=== PATIENT | male | born 1955 | race Caucasian/White ===

== ENCOUNTER 2019-10-26 20:45 | Emergency (ER) | payer MEDICAID ==
[~2019-10-26] VITALS: Ht 170.2 cm; Wt 71.0 kg
[2019-10-26] MEDS ORDERED: MAGNESIUM/ALUMINUM HYDROXIDE/SIMETHICONE 30ML UDC PO STA (22:39)
[2019-10-26] MEDS ORDERED: VISCOUS LIDOCAINE 2% 15 ML UDC PO STA (22:39)
[2019-10-26 22:56] LABS: HEMATOCRIT 42.6 % (42.0-52.0); HEMOGLOBIN 14.1 g/dL (14.0-18.0); MEAN CORPUSCULAR HEMOGLOBIN 30.2 pg (28.0-32.0); PLATELET 166 x1000/uL (130-400); RED BLOOD CELL COUNT 4.68 mill/uL (4.7-6.1); RED CELL DISTRIBUTION WIDTH 12.6 % (11.6-14.6)
[2019-10-26 23:03] LABS: CHLORIDE 109 mEq/L (98-107)
[2019-10-27 00:44] VITALS: BP 146/85
== END 2019-10-27 00:45 | disposition home or self-care (01) ==
LOC: ER 20:45
DX: K29.01 Acute gastritis with bleeding (principal); Z90.49 Acquired absence of other specified parts of digestive tract; Z98.890 Other specified postprocedural states; Z88.6 Allergy status to analgesic agent; Z88.5 Allergy status to narcotic agent; Z88.0 Allergy status to penicillin; Z88.2 Allergy status to sulfonamides
CPT/HCPCS: 36415; 80053; 85027; 93005; 99284

== ENCOUNTER 2020-06-07 22:41 | Emergency (ER) | payer MEDICAID ==
[~2020-06-07] VITALS: Ht 170.2 cm; Wt 71.7 kg
[2020-06-08] MEDS ORDERED: KETOROLAC 30MG/ML VIAL IM ONE (00:30)
[2020-06-08] MEDS ORDERED: METHOCARBAMOL 500MG TABLET PO ONE (01:00)
[2020-06-08] MEDS ORDERED: IBUP-2029 MT (01:01)
[2020-06-08] MEDS ORDERED: METH-653 MT (01:01)
[2020-06-08 01:37] VITALS: BP 140/74
== END 2020-06-08 02:17 | disposition home or self-care (01) ==
LOC: ER 22:41
DX: R51.9 Headache, unspecified (principal); S16.1XXA Strain of muscle, fascia and tendon at neck level, initial encounter; X50.0XXA Overexertion from strenuous movement or load, initial encounter; Y93.89 Activity, other specified; Y92.89 Other specified places as the place of occurrence of the external cause; Y99.8 Other external cause status; Z90.49 Acquired absence of other specified parts of digestive tract; Z88.0 Allergy status to penicillin; Z88.2 Allergy status to sulfonamides; Z88.5 Allergy status to narcotic agent
CPT/HCPCS: 70450; 93005; 96372; 99284; J1885

== ENCOUNTER 2020-10-09 08:16 | Emergency (ER) | payer MEDICAID ==
[~2020-10-09] VITALS: Ht 167.6 cm; Wt 66.0 kg
[~2020-10-09 08:16] MED LIST: IBUP-2029 MT; METH-653 MT
[2020-10-09 08:22] VITALS: BP 155/90
[2020-10-09 09:28] LABS: CLARITY URINE CLEAR (CLEAR); COLOR URINE YELLOW (YELLOW); KETONES URINE NEGATIVE (NEGATIVE); LEUKOCYTE ESTERASE URINE NEGATIVE (NEGATIVE); NITRITE URINE NEGATIVE (NEGATIVE); OCCULT BLOOD URINE NEGATIVE (NEGATIVE); PH URINE 6.5 (4.5-8.0); PROTEIN URINE NEGATIVE (NEGATIVE); SPECIFIC GRAVITY URINE 1.006 (1.005-1.030); UROBILINOGEN URINE 0.2 E.U./dL (0.2-1.0)
[2020-10-09] MEDS ORDERED: CEPH500T MT (10:18)
[2020-10-09] MEDS ORDERED: AZITHROMYCIN 500 MG TABLET PO NR (10:30)
[2020-10-09] MEDS ORDERED: CEFTRIAXONE SODIUM 500 MG/VIAL IM NR (10:30)
[2020-10-11 04:12] LABS: NEISSERIA GONORRHOEAE NAA Negative (Negative)
== END 2020-10-09 10:44 | disposition home or self-care (01) ==
LOC: ER 08:16
DX: R30.0 Dysuria (principal); M19.90 Unspecified osteoarthritis, unspecified site; Z90.49 Acquired absence of other specified parts of digestive tract; Z88.6 Allergy status to analgesic agent; Z88.5 Allergy status to narcotic agent; Z88.0 Allergy status to penicillin; Z88.2 Allergy status to sulfonamides
CPT/HCPCS: 81003; 87086; 87491; 87591; 96372; 99283; J0696

== ENCOUNTER 2022-11-24 12:22 | Emergency (ER) | payer OTHER ==
[~2022-11-24] VITALS: Ht 170.2 cm; Wt 72.6 kg
[~2022-11-24 12:22] MED LIST changes: +CEPH500T MT
[2022-11-24 12:29] VITALS: O2SAT 97
[2022-11-24 12:49] LABS: BASOPHILS % 0.3 % (0.0-2.0); EOSINOPHILS % 1.1 % (0.0-5.0); HEMATOCRIT. 41.1 % (42.0-52.0); MEAN PLATELET VOLUME 9.8 fl (7.4-10.4); NEUTROPHILS % 44.6 % (40.0-76.0); PLATELET 190 x1000/uL (130-400); RED BLOOD CELL COUNT 4.37 mill/uL (4.7-6.1); WHITE BLOOD COUNT 4.9 x1000/uL (4.5-11.0)
[2022-11-24 13:05] LABS: CHLORIDE 108 mEq/L (98-107); INDEX HEMOLYSI 1 (1-3); INDEX ICTERIC 2 (1-4); INDEX LIPEMIC 1 (1-3); POTASSIUM 4.5 mEq/L (3.5-5.1); SODIUM 140 mEq/L (136-145)
[2022-11-24 13:17] LABS: ALANINE AMINOTRANSFERASE 48 IU/L (13-61); ALBUMIN 3.8 g/dL (3.4-5.0); ASPARTATE AMINOTRANSFERASE 29 IU/L (15-37); CALCIUM 9.2 mg/dL (8.5-10.1); CARBON DIOXIDE 27 mEq/L (21-32); GLUCOSE 108 mg/dL (70-105); PROTEIN TOTAL 7.2 g/dL (6.0-8.3); TROPONIN I HIGH SENSITIVITY 4 ng/L (<78); UREA NITROGEN BLOOD 13 mg/dL (7-21)
[2022-11-24] MEDS ORDERED: MAGNESIUM/ALUMINUM HYDROXIDE/SIMETHICONE 30ML UDC PO STA (14:40)
[2022-11-24] MEDS ORDERED: ACETAMINOPHEN 325MG TABLET PO STA (14:40)
[2022-11-24] MEDS ORDERED: FAMOTIDINE 20MG TABLET PO ONE (14:45)
[2022-11-24 14:59] LABS: CLARITY URINE CLEAR (CLEAR); COLOR URINE YELLOW (YELLOW); GLUCOSE URINE NEGATIVE (NEGATIVE); KETONES URINE NEGATIVE (NEGATIVE); LEUKOCYTE ESTERASE URINE NEGATIVE (NEGATIVE); NITRITE URINE NEGATIVE (NEGATIVE); OCCULT BLOOD URINE NEGATIVE (NEGATIVE); PROTEIN URINE NEGATIVE (NEGATIVE); SPECIFIC GRAVITY URINE 1.015 (1.005-1.030)
[2022-11-24] MEDS ORDERED: FAMO-135 PO (17:24)
[2022-11-24] MEDS ORDERED: MAGNESIUM/ALUMINUM HYDROXIDE/SIMETHICONE 30ML UDC PO NR (17:45)
[2022-11-24] MEDS ORDERED: FAMOTIDINE 20MG TABLET PO NR (17:45)
[2022-11-24] MEDS ORDERED: ACETAMINOPHEN 325MG TABLET PO NR (18:00)
[2022-11-24] MEDS ORDERED: IBUPROFEN 400MG TABLET PO ONE (18:00)
[2022-11-24 18:06] VITALS: BP 133/62; PULSE 78; RESP 16; TEMP 98.7
== END 2022-11-24 18:09 | disposition home or self-care (01) ==
LOC: ER 12:22
DX: R10.13 Epigastric pain (principal); R11.2 Nausea with vomiting, unspecified; M19.90 Unspecified osteoarthritis, unspecified site; Z90.49 Acquired absence of other specified parts of digestive tract; Z88.2 Allergy status to sulfonamides; Z88.5 Allergy status to narcotic agent; Z88.8 Allergy status to other drugs, medicaments and biological substances; Z88.6 Allergy status to analgesic agent
CPT/HCPCS: 36415; 76705; 80053; 81003; 84484; 85025; 93005; 99284